=== PATIENT | male | born 1995 | race Caucasian/White ===

== ENCOUNTER 2017-09-20 10:45 | Emergency (ER) | payer BC, OTHER ==
[2017-09-20 11:19] VITALS: BP 144/85; TEMP 98.7; O2SAT 98
[2017-09-20] MEDS ORDERED: LIDOCAINE 1% 10 ML VIAL INJ ONE (11:28)
[2017-09-20] MEDS ORDERED: IODOFORM 1/4 INCH 1 EA BTTL TOP ONE (11:30)
--- NOTE | 2017-09-20 12:04 | ED.PDOC ---
History of Present Illness - General Chief Complaint: Skin/Abrasion/Tear Stated Complaint: Skin irritation to sacrum Time Seen by Provider: 09/20/17 11:17 Source: patient, RN notes reviewed, Vital Signs reviewed Exam Limitations: no limitations - History of Present Illness Initial Comments: Patient presents to ER with painful lump over his sacrum. Symptoms started 2 days ago and have just worsened. Timing/Duration: getting worse - over past 2-3 days Severity: moderate Location: torso Improving Factors: other - heat Worsening Factors: other - sitting Associated Symptoms: swelling/mass/lumps Allergies/Adverse Reactions: Allergies NO KNOWN ALLERGY Allergy (Verified 09/20/17 11:13) Home Medications: Ambulatory Orders Amoxicillin & Pot Clavulanate [Augmentin Tab] 875 mg PO BID #14 tab 09/20/17 Review of Systems - Review of Systems Constitutional: States: no symptoms reported Respiratory: States: no symptoms reported Cardiology: States: no symptoms reported Gastrointestinal/Abdominal: States: no symptoms reported Skin: States: see HPI Neurological: States: no symptoms reported Endocrine: States: no symptoms reported All other Systems: No Change from Baseline Past Medical History (General) - Patient Medical History Hx Stroke: No Hx Congestive Heart Failure: No Hx Diabetes: No Hx MRSA: No Surgical History: other - Vaccination History Hx Influenza Vaccination: Yes - 2016 Hx Pneumococcal Vaccination: No - Social History Hx Tobacco Use: No Family Medical History - Family History Father Living Status: Still Living Hx Family Hypertension: Yes Physical Exam - Physical Exam General Appearance: Alert, Comfortable, No apparent distress, Well Developed, Well Groomed, Well Hydrated, Well Nourished Neck: full range of motion, supple Respiratory: no respiratory distress Extremity: normal range of motion, non-tender, normal inspection Neurologic: alert, normal mood/affect Skin Exam: warm/dry Skin Problem Location: other - Sacrum, just caudal to gluteal cleft Skin Character: abscess, erythema, swelling, tenderness, thickening, warm Comments: Vital Signs 09/20/17 11:18 Temperature 98.7 F Pulse Rate [ 77 Left Radial] Respiratory 20 Rate Blood Pressure 144/85 [Left Arm] O2 Sat by Pulse 98 Oximetry Procedures - Incision and Drainage #1 Site: Pilonidal cyst Procedure and Prep: betadine prep, gauze wick placed, pus drained Blade Size: 11 Procedure Comments: Patient tolerated well. 1 cc Lidocaine w/o epi injected prior to incision Departure - Departure Clinical Impression: Pilonidal cyst with abscess Time of Disposition: 12:06 Disposition: Discharge to Home or Self Care Condition: Good Departure Forms: ED Discharge - Pt. Copy, Patient Portal Self Enrollment Instructions: Pilonidal Cyst Diet: resume usual diet Activity: increase activity as tolerated Referrals: Ortega Joe MD [Primary Care Provider] - 1-2 Weeks Prescriptions: Amoxicillin & Pot Clavulanate [Augmentin Tab] 875 mg PO BID #14 tab Home Medications: Ambulatory Orders Amoxicillin & Pot Clavulanate [Augmentin Tab] 875 mg PO BID #14 tab 09/20/17 Additional Instructions: Hot soaks After 24 hrs remove 1cm of packing daily, if packing falls out just continue hot soaks If not improving in 48 hours or if worsening start antibiotics.
== END 2017-09-20 12:10 | disposition home or self-care (01) ==
LOC: ER 10:45
DX: L05.01 Pilonidal cyst with abscess (principal)